=== PATIENT | female | born 1955 | race Caucasian/White ===

== ENCOUNTER 2022-09-19 11:46 | Emergency (ER) | payer MEDICARE, SELFPAY ==
--- NOTE | 2022-09-19 11:56 | ED.FEMALEGU ---
HPI - Female Genitourinary General Chief complaint: Urogenital-Female Stated complaint: UTI Time Seen by Provider: 09/19/22 12:12 Source: patient, RN notes reviewed and old records reviewed Mode of arrival: ambulatory Limitations: no limitations History of Present Illness HPI Narrative: 66-year-old female presents to the [facility] with complaints of urinary symptoms and right lower back pain. Reports frequency, urgency and burning with urination Denies abdominal pain, nausea, vomiting or diarrhea. Denies fevers Related Data Home Medications Medication Instructions Recorded Confirmed atorvastatin 40 mg tablet 40 mg PO DAILY 09/19/22 09/19/22 buspirone 10 mg tablet 10 mg PO DAILY 09/19/22 09/19/22 citalopram 40 mg tablet 40 mg PO DAILY 09/19/22 09/19/22 gabapentin 400 mg capsule 400 mg PO DIRECTED 09/19/22 09/19/22 hydrochlorothiazide 25 mg tablet 25 mg PO DAILY 09/19/22 09/19/22 lisinopril 20 mg tablet 20 mg PO DAILY 09/19/22 09/19/22 metoprolol tartrate 25 mg tablet 25 mg PO DAILY 09/19/22 09/19/22 nortriptyline 25 mg capsule 25 mg PO DAILY 09/19/22 09/19/22 omeprazole 40 mg capsule,delayed 40 mg PO DAILY 09/19/22 09/19/22 release tirzepatide 7.5 mg/0.5 mL 7.5 mg subcut DIRECTED 09/19/22 09/19/22 subcutaneous pen injector (Mounjaro) trazodone 50 mg tablet 50 mg PO DAILY 09/19/22 09/19/22 Allergies Allergy/AdvReac Type Severity Reaction Status Date / Time tramadol Allergy Unknown Other Verified 09/19/22 11:56 Review of Systems Review of Systems: All systems reviewed & are unremarkable except as noted in HPI and below Constitutional: Constitutional: Reports no additional constitutional complaints Eyes: Eyes: Reports no additional eye complaints ENT: Reports system reviewed and no additional complaints, except as documented Cardiovascular: Cardiovascular: Reports no additional cardiovascular complaints, Denies chest pain and Denies dyspnea Respiratory: Respiratory: Reports no additional respiratory complaints, Denies chest congestion, Denies cough and Denies dyspnea Gastrointestinal: Gastrointestinal: Reports no additional gastrointestinal complaints, Denies abdominal pain, Denies nausea and Denies vomiting Genitourinary: Genitourinary: Reports as per HPI and Reports dysuria Musculoskeletal: Musculoskeletal: Reports no additional musculoskeletal complaints Integumentary/Breasts: Skin/Breast: Reports system reviewed and no additional complaints, except as docu Neurologic: Reports system reviewed and no additional complaints, except as documented Psychiatric: Psychiatric: Reports no additional psychiatric complaints Allergic/Immunologic: Allergic/Immunologic: Reports no additional allergic/immunologic complaints PMFSH Family History Family History Father Hypertension Family history of elevated blood lipids Family history of diabetes mellitus in first degree relative Family history of malignant neoplasm of kidney, Onset Age: 77 Mother Hypertension Family history of elevated blood lipids Grandparent Family history of malignant neoplasm of breast, Onset Age: 65 Social History Social History Smoking status: Never smoker Smoking end date: 09/19/06 Alcohol intake: current Comments At the time of my signature, I reviewed and agree with the nursing past medical, surgical, social, and family history. There is no relevant family history pertinent to the patient complaint. Exam Const: General: cooperative, healthy appearing, comfortable, no acute distress, well developed, alert and well nourished Nutritional Appearance: well nourished Orientation/consciousness: patient oriented x3 Limitations: no limitations HENMT: Head: normal to inspection Ears: hearing grossly normal bilaterally and external ears normal Face/Nose/Sinus: Normal external nose present, Normal nares presen
[2022-09-19 12:11] VITALS: BP 114/68; PULSE 81; RESP 16; TEMP 37.1; O2SAT 99
== END 2022-09-19 12:25 | disposition home or self-care (01) ==
PROVIDERS: Emergency Provider Nurse Practitioner; PCP Family Medicine
DX: N39.0 Urinary tract infection, site not specified (principal); Z87.891 Personal history of nicotine dependence
CPT/HCPCS: 81003; 87086; 99213; G0463